=== PATIENT | female | born 1985 | race Two or more races ===

== ENCOUNTER → 2018-06-21 | Outpatient (CLI) | payer OTHER ==
--- NOTE | 2018-06-21 14:48 | RADIOLOGY REPORT (SQ) ---
EXAM DESCRIPTION: C SP 4 OR 5 VIEWS COMPLETED DATE/TIME: 06/21/2018 2:24 pm REASON FOR STUDY: NECK PAIN M54.2 CERVICALGIA COMPARISON: None. NUMBER OF VIEWS: Five views. TECHNIQUE: AP, lateral, obliques and odontoid radiographic images acquired of the cervical spine. LIMITATIONS: None. FINDINGS: MINERALIZATION: Normal. ALIGNMENT: There is straightening of the normal cervical lordosis. VERTEBRAE: Vertebral bodies of normal height. DISCS: Mild disc space narrowing at C5-C6 with small anterior osteophytes. FORAMINA: No osteophytes or foraminal narrowing. LATERAL AND POSTERIOR ELEMENTS: Facets, lateral masses and spinous processes without significant find ings. HARDWARE: None in the spine. SOFT TISSUES: No masses or calcifications. Lung apices clear. OTHER: No other significant finding. IMPRESSION: Mild disc degenerative disease at C5-C6. Straightening of the normal cervical lordosis. TECHNICAL DOCUMENTATION: JOB ID: [id number] [employer]- All Rights Reserved Reading location - IP/workstation name: [email or web address]
== END ==
LOC: OD 14:07
PROVIDERS: ATTEND Physician Assistant
DX: M54.2 Cervicalgia (principal)
CPT/HCPCS: 72050

== ENCOUNTER 2018-12-12 05:30 | Day surgery (SDC) | payer OTHER ==
[2018-12-07 11:27] LABS: HEMATOCRIT 39.9 % (36.0-47.0); HEMOGLOBIN 13.6 g/dL (12.0-15.5); MEAN CORPUSCULAR HEMOGLOBIN 34.3 pg (27.0-33.4); MEAN CORPUSCULAR HGB CONC 34.2 g/dL (32.0-36.0); MEAN CORPUSCULAR VOLUME 100 fl (80-97); PLATELET COUNT 195 10^3/uL (150-450); RED BLOOD COUNT 3.98 10^6/uL (3.72-5.28); RED CELL DISTRIBUTION WIDTH 12.1 % (11.5-14.0); WHITE BLOOD COUNT 12.5 10^3/uL (4.0-10.5)
[2018-12-07 11:36] LABS: APPEARANCE,URINE CLEAR; BILIRUBIN,URINE NEGATIVE (NEGATIVE); COLOR,URINE YELLOW; GLUCOSE, URINE NEGATIVE (NEGATIVE); KETONES,URINE NEGATIVE (NEGATIVE); LEUKOCYTE ESTERASE,URINE NEGATIVE (NEGATIVE); NITRITE,URINE NEGATIVE (NEGATIVE); PROTEIN,URINE NEGATIVE (NEGATIVE); URINE SPECIFIC GRAVITY 1.014; UROBILINOGEN,URINE NEGATIVE mg/dL (<2.0)
[2018-12-07 11:46] LABS: ALBUMIN 4.4 g/dL (3.5-5.0); ALKALINE PHOSPHATASE 58 U/L (38-126); ANION GAP 8 (5-19); ASPARTATE AMINO TRANSFERASE 19 U/L (14-36); BILIRUBIN,DIRECT 0.1 mg/dL (0.0-0.4); BILIRUBIN,TOTAL 0.5 mg/dL (0.2-1.3); BLOOD UREA NITROGEN 10 mg/dL (7-20); CALCIUM 9.3 mg/dL (8.4-10.2); CARBON DIOXIDE 26 mmol/L (22-30); CHLORIDE 106 mmol/L (98-107); GLUCOSE 78 mg/dL (75-110); POTASSIUM 4.3 mmol/L (3.6-5.0); TOTAL PROTEIN 7.4 g/dL (6.3-8.2)
[~2018-12-12 05:30] MED LIST: CEFAZOLIN SODIUM 2 GM in DEXTROSE 5%-WATER 100 ML IV PRN; CLINDAMYCIN 900 MG/D5W RTU 900 MG/50 ML RTUPB IV PRN; LACTATED RINGERS 1000 ML IV PRN
[2018-12-12] MEDS ORDERED: CLINDAMYCIN 900 MG/D5W RTU 900 MG/50 ML RTUPB IV ONE (06:36)
[2018-12-12] MEDS ORDERED: FENTANYL CITRATE INJ/PF 250 MCG/5 ML AMPULE ONE (06:37)
[2018-12-12] MEDS ORDERED: PROPOFOL INJ 200 MG/20 ML VIAL IV ONE (06:37)
[2018-12-12] MEDS ORDERED: MIDAZOLAM 2 MG/2 ML INJ ONE (06:37)
[2018-12-12] MEDS ORDERED: FENTANYL CITRATE INJ/PF 100 MCG/2 ML AMPUL ONE (06:37)
[2018-12-12] MEDS ORDERED: ONDANSETRON HCL INJ/PF 4 MG/2 ML SDV ONE ×2 (06:55→14:42)
[2018-12-12] MEDS ORDERED: SCOPOLAMINE HYDROBROMIDE 1.5 MG PATCH.TD72 ONE (06:55)
[2018-12-12] MEDS ORDERED: EPHEDRINE SULFATE INJ 50 MG/1 ML AMPULE ONE (06:59)
[2018-12-12] MEDS ORDERED: BUPIVACAINE HCL 0.25 % INJ/PF (2.5 MG/1 ML) 30 ML VIAL ONE (07:11)
[2018-12-12] MEDS ORDERED: METHYLENE BLUE 50 MG/10 ML AMPULE ONE (07:11)
[2018-12-12] MEDS ORDERED: ACETAMINOPHEN 1,000 MG/100 ML RTUPB IV PRN (09:32)
[2018-12-12] MEDS ORDERED: HYDROMORPHONE HCL INJ/PF 2 MG/ML AMPULE IV PRN (09:32)
[2018-12-12] MEDS ORDERED: ACETAMINOPHEN 325 MG TABLET PO PRN (09:32)
[2018-12-12] MEDS ORDERED: RINGERS SOLUTION,LACTATED 1,000 ML IV PRN (09:32)
[2018-12-12] MEDS ORDERED: OXYCODONE-ACETAMINOPHEN 5-325 MG TABLET PO PRN ×2 (09:32)
[2018-12-12] MEDS ORDERED: PROMETHAZINE HCL INJ 25 MG/1 ML VIAL IV PRN ×3 (09:32→09:36)
[2018-12-12] MEDS ORDERED: SIMETHICONE 80 MG TAB.CHEW PO PRN (09:32)
[2018-12-12] MEDS ORDERED: FENTANYL CITRATE INJ/PF 100 MCG/2 ML AMPUL IV PRN ×3 (09:36)
[2018-12-12] MEDS ORDERED: DIPHENHYDRAMINE HCL 50 MG/ML VIAL IV PRN (09:36)
[2018-12-12] MEDS ORDERED: MEPERIDINE HCL/PF INJ 25 MG/1 ML DISP.SYRIN IV PRN (09:36)
[2018-12-12] MEDS: FENTANYL CITRATE INJ/PF 100 MCG/2 ML AMPUL ONE ×2 (09:40→09:50)
--- NOTE | 2018-12-12 09:44 | Operative Report ---
Operative Report DATE OF SURGERY: 12/12/18 PREOPERATIVE DIAGNOSIS: Dyspareunia pelvic pain POSTOPERATIVE DIAGNOSIS: Same plus omental adhesions OPERATION: Robotic hysterectomy bilateral salpingectomy with lysis of omental adhesions SURGEON: IGOR MCCRACKEN ANESTHESIA: GA TISSUE REMOVED OR ALTERED: Uterus fallopian tubes and cervix COMPLICATIONS: None ESTIMATED BLOOD LOSS: 50 cc INTRAOPERATIVE FINDINGS: Omental adhesions normal-appearing ovaries. PROCEDURE: Patient was taken to the OR and placed in supine position. General anesthesia was induced. She is placed in a dorsolithotomy position using Guilherme stirrups. Her abdomen perineum and vagina were prepared and draped in sterile fashion. A weighted speculum was placed in the vagina. A Dunn catheter was placed in to the urethra. A V care uterine manipulator was placed in the uterus with a medium size cup. The weighted speculum was then removed. Incision was made at the umbilicus and natural umbilical defect was identified and dilated with Maria Antonia clamp allowing a blunt port to be placed. Laparoscopy confirmed appropriate placement. The 2 lateral ports were placed lateral to the inferior epigastric artery. The right lower quadrant port also was placed lateral to the inferior epigastric artery. The patient was placed in steep Trendelenburg. The robot was brought to the patient and docked. The omental adhesions were taken down. View of the pelvis was good. Each fallopian tube was then removed by using cautery along the mesosalpinx for hemostasis and the tubes in turn were excised and passed off the field through the accessory port. Next the round ligaments were cauterized with bipolar and cut with monopolar s hears. The utero-ovarian pedicles were likewise cauterized with bipolar and cut with monopolar izabel. Staying directly next to the uterine body the broad ligament was cauterized with bipolar and cut with monopolar izabel bilaterally. The anterior leaf of the broad ligament was incised creating a bladder flap. The uterine arteries bilaterally were cauterized with bipolar and cut with monopolar izabel. The cardinal ligaments also were cauterized bipolar and cut with monopolar izabel. With the cautery of the uterine arteries and cardinal ligaments the clerk operator stayed directly next to the uterine cervix. Next a circumferential incision was made at the vaginal cuff on top of the V care cup. The uterus and cervix were removed through the vagina. There was no evidence of injury to bladder. The vaginal cuff was closed from right to left with a V lock suture incorporating anterior vaginal mucosa lateral vaginal sidewall and posterior vaginal mucosa. The suture was then looped and pulled tight. The cuff was closed incorporating anterior vaginal coasted to posterior vaginal mucosa in a running fashion and upon reaching the left side of the incision anterior vaginal mucosa lateral vaginal sidewall and posterior vaginal mucosa. Several sutures were then taken medially. This closed the vaginal cuff well. The vaginal cuff and all pedicles were inspected for bleeding and none was noted. The pelvis was suctioned free of any remaining fluid and blood. Both ureters could be seen peristalsing in the pelvis at the end of the case and were normal size. The robot was then undocked from the patient. The ports were removed under laparoscopic visualization. The umbilical port and scope were removed at the same time. The fascia was closed at the insufflation port as well as the umbilical port. This was done with a 2-0 Vicryl suture. The skin sites were closed with a 4-0 undyed Vicryl suture. Patient was placed back in supine position extubated in the OR and brought to recovery room in stable condition.
[2018-12-12] MEDS ORDERED: ACETAMINOPHEN 1,000 MG/100 ML RTUPB IV ONE (09:56)
[2018-12-12] MEDS ORDERED: IBUPROFEN 800 MG TABLET PO SCH (12:00)
[2018-12-12] MEDS: DOCUSATE SODIUM 100 MG CAPSULE PO SCH ×2 (13:29→18:38)
[2018-12-12] MEDS ORDERED: KETOROLAC TROMETHAMINE INJ/PF 30 MG/1 ML SDV IV SCH ×2 (14:00→18:00)
[2018-12-12] MEDS ORDERED: RINGERS SOLUTION,LACTATED 500 ML IV ONE (14:30)
[2018-12-12] MEDS ORDERED: SUCCINYLCHOLINE CHLORIDE INJ 200 MG/10 ML VIAL ONE (14:42)
[2018-12-12] MEDS ORDERED: KETOROLAC TROMETHAMINE 60 MG/2 ML SDV ONE (14:42)
[2018-12-12] MEDS ORDERED: LIDOCAINE 2% INJ-PF (20 MG/ML) 2 ML AMPUL ONE (14:42)
[2018-12-12] MEDS ORDERED: ROCURONIUM BROMIDE INJ 50 MG/5 ML VIAL IV ONE (14:42)
[2018-12-12] MEDS ORDERED: GLYCOPYRROLATE 1 MG/5 ML VIAL ONE (14:42)
[2018-12-12] MEDS ORDERED: NEOSTIGMINE METHYLSULFATE 10 MG/10 ML VIAL ONE (14:42)
[2018-12-12] MEDS ORDERED: DEXAMETHASONE SOD PHOSPHATE INJ 4 MG/1 ML VIAL ONE (14:42)
--- NOTE | 2018-12-12 16:33 | Discharge Summary ---
Discharge Summary (SDC) - Discharge Final Diagnosis: Dyspareunia dysmenorrhea Date of Surgery: 12/12/18 Discharge Date: 12/12/18 Condition: Good Prescriptions: Oxycodone HCl/Acetaminophen [Percocet 5-325 mg Tablet] 1 tab PO Q4HP PRN #30 tablet PRN Reason: Ibuprofen [Motrin 800 mg Tablet] 800 mg PO Q6 #30 tablet Referrals: LILIBETH BARTHOLOMEW PA [Primary Care Provider] - Discharge Diet: Regular Discharge Activity: Balance Activity w/Rest, Pelvic Rest Home Care Assistance: None Needed Report the Following to Your Physician Immediately: Fever over 101 Degrees, Unusual Bleeding
[2018-12-12 18:17] VITALS: BP 123/75
== END 2018-12-12 18:50 | disposition home or self-care (01) ==
LOC: OROUT 05:30 → 2N 10:30 → OROUT 18:50
PROVIDERS: ATTEND Obstetrics & Gynecology
DX: N87.0 Mild cervical dysplasia (principal); K66.0 Peritoneal adhesions (postprocedural) (postinfection); N94.10 Unspecified dyspareunia; R10.2 Pelvic and perineal pain; F17.210 Nicotine dependence, cigarettes, uncomplicated; Z79.899 Other long term (current) drug therapy
CPT/HCPCS: 58571; S2900; 36415; 80053; 81001; 81025; 840; 85027; 86850; 86900; 86901; 88307; 94799; J0131; J0330; J0690; J1100; J1885; J2250; J2405; J2704; J2710; J3010; J3490; J7060; Q9968

== ENCOUNTER → 2019-03-10 | Outpatient (CLI) | payer OTHER ==
--- NOTE | 2019-03-10 14:59 | RADIOLOGY REPORT (SQ) ---
EXAM DESCRIPTION: KNEE LEFT 4 VIEWS COMPLETED DATE/TIME: 03/10/2019 1:40 pm REASON FOR STUDY: PAIN IN LEFT KNEE M25.562 PAIN IN LEFT KNEE COMPARISON: None. NUMBER OF VIEWS: Four views. TECHNIQUE: AP, lateral, and both oblique radiographic images acquired of the left knee. LIMITATIONS: None. FINDINGS: MINERALIZATION: Normal. BONES: No acute fracture or dislocation. No worrisome bone lesions. JOINT: No effusion. SOFT TISSUES: No soft tissue swelling. No radio-opaque foreign body. OTHER: No other significant finding. IMPRESSION: NEGATIVE STUDY OF THE LEFT KNEE. NO RADIOGRAPHIC EVIDENCE OF ACUTE INJURY. TECHNICAL DOCUMENTATION: JOB ID: [id number] [email or web address]- All Rights Reserved Reading location - IP/workstation name: [email or web address]
== END ==
LOC: OD 13:24
PROVIDERS: ATTEND Physician Assistant
DX: M25.562 Pain in left knee (principal)